=== PATIENT | male | born 1925 | race Caucasian/White ===

== ENCOUNTER 2016-05-12 16:23 | Inpatient (IN) | payer OTHER ==
[2016-05-12 16:34] VITALS: BMI 28.1
--- NOTE | 2016-05-12 17:33 | PDOC ---
History of Present Illness - History of Present Illness Initial Comments: The patient is an 89 year old male with a past medical hx of Alzheimers, HTN, hyperlipidemia, CAD, afib (xarelto), peptic ulcer disease/p partial gastrectomy ) who was sent to the ED by his PCP for a repeat head CT status post fall and shingles (prescribed Valtrex). He went to [facility] yesterday, had a negative head CT, and signed out AMA. The patient complains of bruising and pain in the posterior aspect of his head, and right sided neck pain, worse with right sided rotation. Shingles has disseminated throughout the body. The patient lives at home alone, accompanied by cousin. The patient denies dizziness, lightheadedness, muscle weakness, paresthesias, change in vision The patient denies chest pain, SOB The patient denies nausea, vomiting, diarrhea The patient denies dysuria, frequency Allergies: Penicillin Surgical Hx: Quadruple Bypass, Abdominal surgery (many years ago) Social Hx: Former Smoker (Quit smoking 28 years ago) PCP: Dr. Colmenares IFD: Dr. Oropeza <Staci Caro - Last Filed: 05/12/16 18:52> - General History Source: Care Provider Exam Limitations: No Limitations <Angy Sweeney - Last Filed: 05/12/16 19:15> - General Chief Complaint: Weakness Stated Complaint: PCP SENT/EVALUATION/Weak/Fall, On blood thinner Time Seen by Provider: 05/12/16 17:32 Past History <Staci Caro - Last Filed: 05/12/16 18:52> - Past Medical History Cardiac Disorders: Yes (A FIB) Dementia: Yes GI Disorders: Yes HTN: Yes - Surgical History Abdominal Surgery: Yes Cardiac Surgery: Yes (QUAD BYPASS.) - Psycho/Social/Smoking Cessation Hx Anxiety: No Suicidal Ideation: No Smoking Status: No Smoking History: Never smoked Have you smoked in the past 12 months: No Number of Cigarettes Smoked Daily: 0 If you are a former smoker, when did you quit?: Over 28 years ago Information on smoking cessation initiated: No Hx Alcohol Use: No Drug/Substance Use Hx: No Substance Use Type: None Hx Substance Use Treatment: No <Angy Sweeney - Last Filed: 05/12/16 19:15> - Past Medical History Allergies/Adverse Reactions: Allergies Allergy/AdvReac Type Severity Reaction Status Date / Time Penicillins Allergy Severe Swelling Verified 05/12/16 16:29 Home Medications: Ambulatory Orders Acetaminophen [Tylenol] 650 mg PO QID PRN 05/12/16 Alprazolam [Xanax] 0.5 mg PO HS 05/12/16 Amlodipine Besylate [Norvasc -] 10 mg PO DAILY 05/12/16 Atorvastatin Ca [Lipitor] 20 mg PO HS 05/12/16 Diclofenac Sodium 40 mg TD BID 05/12/16 Gabapentin [Neurontin -] 300 mg PO HS 05/12/16 Hydrocortisone 2.5% Topical Cr [Anusol 2.5% Hc Cream -] 1 applic RC BID Metoprolol Succinate [Toprol Xl -] 50 mg PO DAILY 05/12/16 Olmesartan Medoxomil [Benicar (Nf)] 40 mg PO DAILY 05/12/16 Rivaroxaban [Xarelto -] 10 mg PO DAILY 05/12/16 Rivaroxaban [Xarelto -] 15 mg PO DAILY 05/12/16 Rivastigmine [Exelon Patch 9.5 mg/24 Hours] 1 each TD DAILY 05/12/16 Rosuvastatin [Crestor -] 10 mg PO DAILY 05/12/16 Tamsulosin HCl [Flomax] 0.4 mg PO DAILY 05/12/16 Valacyclovir HCl [Valtrex] 1,000 mg PO TID 05/12/16 Valsartan [Diovan] 160 mg PO DAILY 05/12/16 Zolpidem Tartrate [Ambien] 10 mg PO HS 05/12/16 Review of Systems - Review of Systems Able to Perform ROS?: Yes Comments:: 05/12/16 18:37 GENERAL/CONSTITUTIONAL: No: fever, chills, weakness, loss of appetite. HEAD, EYES, EARS, NOSE AND THROAT: +Bruising and pain to the posterior aspect of head. No: change in vision, ear pain, discharge, sore throat, throat swelling. CARDIOVASCULAR: No: chest pain, lightheadedness, palpitations, syncope RESPIRATORY: No: cough, shortness of breath, wheezing, hemoptysis, stridor. GASTROINTESTINAL: No: nausea, vomiting, abdominal cramping, diarrhea, rectal bleeding, constipation. GENITOURINARY: No: dysuria, hematuria, frequency, urgency, flank pain. MUSCULOSKELETAL: +Right sided neck pain. No: back pain, joint pain, muscle swelling. SKIN: No: lesions, pallor, rash or easy bruising. NEUROLOGIC: No: headache, vertigo, paresthesias, weakness ENDOCRINE: No: unexplained weight gain or loss HEMATOLOGIC/LYMPHATIC: No: anemia, easy bleeding, swelling nodes <Staci Caro - Last Filed: 05/12/16 18:52> *Physical Exam - Vital Signs Last Vital Signs Temp Pulse Resp BP Pulse Ox 97.8 F 85 18 198/110 98 05/12/16 16:27 05/12/16 16:27 05/12/16 16:27 05/12/16 16:27 05/12/16 16:27 - Physical Exam Comments: 05/12/16 18:52 GENERAL: The patient is in no acute distress. HEAD: +Dry blood to the posterior aspect of head. Tender 5x5 lesion on posterior aspect of head. EYES: PERRLA, EOMI, sclera anicteric, conjunctiva clear. ENT: Ears normal, nares patent, oropharynx clear without exudates. Moist mucous membranes. NECK: +Tense right SCM. Minimal range of motion on flexion and extension. Without lymphadenopathy, JVD, or masses. LUNGS: Breath sounds equal, clear to auscultation bilaterally. No wheezes, and no crackles. HEART:Regular rate and rhythm, normal S1 and S2 without murmur, rub or gallop. ABDOMEN: Soft, nontender, normoactive bowel sounds. No guarding, no rebound. EXTREMITIES: +Numerous maculopapular lesions on the L4 L5 dermatomes. Normal range of motion, no edema. No clubbing or cyanosis. No erythema, or tenderness. NEUROLOGICAL: +Negative dysdiadochokinesia, finger to nose intact, negative pronator drift. Muscle strength 5/5 throughout. Reflexes 2+ throughout. Unsteady gait, unable to perform heel to welch. Cranial nerves II through XII intact. Normal speech. No focal neurological deficits. MUSCULOSKELETAL: Back nontender to palpation, no CVA tenderness SKIN: +Dry, crusted, erythematous lesions throughout. Warm, Dry, normal turgor. <Staci Caro - Last Filed: 05/12/16 18:52> - Vital Signs Last Vital Signs Temp Pulse Resp BP Pulse Ox 97.8 F 85 18 198/110 98 05/12/16 16:27 05/12/16 16:27 05/12/16 16:27 05/12/16 16:27 05/12/16 16:27 <Angy Sweeney - Last Filed: 05/12/16 19:15> Heart Score/ECG Review #1 ECG reviewed & interpreted by me at: 19:15 05/12/16 19:15 Junctional rhythm, Rate of 88 bpm, [place] nml No st elevation or depressions (+) PVCs <Angy Sweeney - Last Filed: 05/12/16 19:15> ED Treatment Course - LABORATORY CBC & Chemistry Diagram: 05/12/16 18:00 05/12/16 18:00 - ADDITIONAL ORDERS Additional order review: Laboratory Results 05/12/16 18:00 Anti-A Titer Cancelled Blood Type Cancelled Antibody Screen Cancelled Spec Expiration Date Cancelled 05/12/16 18:00 RBC 5.40 D MCV 82.7 MCHC 32.1 RDW 16.0 H D MPV 8.4 Neutrophils % 72.2 Lymphocytes % 18.2 Monocytes % 7.9 Eosinophils % 0.8 Basophils % 0.9 <Staci Caro - Last Filed: 05/12/16 18:52> - LABORATORY CBC & Chemistry Diagram: 05/12/16 18:00 05/12/16 18:00 <Angy Sweeney - Last Filed: 05/12/16 19:15> Medical Decision Making - Medical Decision Making 05/12/16 17:33 A portion of this note was documented by scribe services under my direction. I have reviewed the details of the note, within reason, and agree with the documentation with the following case summary and management plan written by me. Nursing documentation reviewed and incorporated into medical decision making 05/12/16 18:30 This is an 89-year-old male with a history of dementia, HTN, hyperlipidemia, CAD , paroxysmal afib (xarelto), peptic ulcer disease/p partial gastrectomy, who presents to the ER s/p fall Pt was seen at an OSH where Head CT was done Pt did not want to come in to the hospital at that time Pt has been noted to have failure to thrive Pt sent to the ER to be admitted, repeat Head CT (given head trauma and Xeralto) 05/12/16 18:34 Laboratory Tests 02/12/16 05/12/16 06:00 18:00 WBC 7.5 9.8 D Hgb 12.5 14.4 D Hct 38.1 44.7 D Plt Count 139 233 D 05/12/16 19:00 Will admit under [facility] Pt admitted by Dr Alvarado 05/12/16 19:02 <Angy Sweeney - Last Filed: 05/12/16 19:15> *DC/Admit/Observation/Transfer - Attestations Scribe Attestion: 05/12/16 18:38 Documentation prepared by Staci Caro, acting as medical transcriptionist for Angy Sweeney MD/DO. <Staci Caro - Last Filed: 05/12/16 18:52> - Discharge Dispostion Admit: Yes <Angy Sweeney - Last Filed: 05/12/16 19:15> Diagnosis at time of Disposition: Weakness - Discharge Dispostion Condition at time of disposition: Stable - Referrals Referrals: Denny Alvarado MD [Primary Care Provider] -
[2016-05-12 18:10] LABS: BASOPHIL 0.9 % (0-2.0); EOSINOPHIL 0.8 % (0-4.5); MCH 26.6 pg (25.7-33.7); MCHC 32.1 g/dl (32.0-35.9); MEAN CELL VOLUME 82.7 fl (80-96); MEAN PLT VOLUME 8.4 fl (7.5-11.1); NEUTROPHILS 72.2 % (42.8-82.8); PLATELET COUNT 233 K/MM3 (134-434); WHITE BLOOD COUNT 9.8 K/mm3 (4.0-10.0)
[2016-05-12 18:47] LABS: ALBUMIN 4.5 g/dl (3.4-5.0); ALK PHOS 83 U/L (45-117); ANION GAP 8 (8-16); BILIRUBIN,TOTAL 1.7 mg/dL (0.2-1.0); CALCIUM 9.3 mg/dL (8.5-10.1); CO2 26 mmol/L (21-32); CREATININE 1.1 mg/dL (0.7-1.3); GLUCOSE,RANDOM 165 mg/dL (74-106); SGOT/AST 39 U/L (15-37); SGPT/ALT 53 U/L (12-78); TOT PROT 7.9 g/dl (6.4-8.2)
[2016-05-12 18:50] LABS: INR 1.91 (0.82-1.09); PROTHROMBIN TIME (PATIENT) 21.3 SEC (9.98-11.88)
[2016-05-12 19:56] LABS: TROPONIN I < 0.02 ng/ml (0.00-0.05)
[2016-05-12] MEDS ORDERED: ATORVASTATIN CA 40 MG TABLET (FP) ONE (22:41)
[2016-05-12] MEDS ORDERED: TAMSULOSIN HCL 0.4 MG CAP.ER.24H (FP) ONE (22:41)
[2016-05-12] MEDS: ATORVASTATIN CA 20 MG TABLET (FP) PO SCH (22:55)
[2016-05-12] MEDS: TAMSULOSIN HCL 0.4 MG CAP.ER.24H (FP) PO SCH (22:55)
[2016-05-13 03:42] LABS: TROPONIN I 0.02 ng/ml (0.00-0.05)
[2016-05-13 08:21] LABS: BASOPHIL 0.5 % (0-2.0); EOSINOPHIL 1.2 % (0-4.5); MCH 27.1 pg (25.7-33.7); MCHC 32.7 g/dl (32.0-35.9); MEAN CELL VOLUME 82.9 fl (80-96); MEAN PLT VOLUME 8.7 fl (7.5-11.1); NEUTROPHILS 73.7 % (42.8-82.8); PLATELET COUNT 203 K/MM3 (134-434); RDW 15.8 % (11.9-15.9)
[2016-05-13 09:03] LABS: ALK PHOS 76 U/L (45-117); ANION GAP 5 (8-16); BILIRUBIN,TOTAL 1.7 mg/dL (0.2-1.0); CALCIUM 8.5 mg/dL (8.5-10.1); CO2 28 mmol/L (21-32); GLUCOSE,RANDOM 105 mg/dL (74-106); SGOT/AST 33 U/L (15-37); SGPT/ALT 46 U/L (12-78); THYROID STIMULATING HORMONE 1.87 uIU/ml (0.358-3.74); TROPONIN I 0.02 ng/ml (0.00-0.05)
[2016-05-13] MEDS: PANTOPRAZOLE 40 MG TABLET (FP) PO SCH (09:52)
[2016-05-13] MEDS: TAMSULOSIN HCL 0.4 MG CAP.ER.24H (FP) PO SCH ×2 (09:52→22:44)
[2016-05-13] MEDS ORDERED: RIVAROXABAN 15 MG TABLET PO SCH (10:00)
[2016-05-13] MEDS ORDERED: METOPROLOL SUCCINATE 50 MG TAB.SR.24H (FP) PO SCH ×2 (10:00→10:45)
[2016-05-13] MEDS ORDERED: PATIENT'S OWN MEDICATION (NON-FORMULARY) (Rivastigmine 1 EACH) TD SCH (10:00)
--- NOTE | 2016-05-13 10:27 | CONSULT ---
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 Cardio/Vascular: Yes: AFIB, CAD, HTN, Hyperlipdemia Rheumatology: Yes: Gout - Past Surgical History Past Surgical History: Yes: CABG, Carotid Endarterectomy - Alcohol/Substance Use Hx Alcohol Use: No - Smoking History Smoking history: Never smoked Have you smoked in the past 12 months: No Aproximately how many cigarettes per day: 0 If you are a former smoker, when did you quit?: Over 28 years ago - Social History Usual Living Arrangement: Alone ADL: Independent Home Medications - Allergies Allergies/Adverse Reactions: Allergies Allergy/AdvReac Type Severity Reaction Status Date / Time Penicillins Allergy Severe Swelling Verified 05/12/16 16:29 - Home Medications Home Medications: Ambulatory Orders Acetaminophen [Tylenol] 650 mg PO QID PRN 05/12/16 Alprazolam [Xanax] 0.5 mg PO HS 05/12/16 Amlodipine Besylate [Norvasc -] 10 mg PO DAILY 05/12/16 Atorvastatin Ca [Lipitor] 20 mg PO HS 05/12/16 Diclofenac Sodium 40 mg TD BID 05/12/16 Gabapentin [Neurontin -] 300 mg PO HS 05/12/16 Hydrocortisone 2.5% Topical Cr [Anusol 2.5% Hc Cream -] 1 applic RC BID Metoprolol Succinate [Toprol Xl -] 50 mg PO DAILY 05/12/16 Olmesartan Medoxomil [Benicar (Nf)] 40 mg PO DAILY 05/12/16 Rivaroxaban [Xarelto -] 10 mg PO DAILY 05/12/16 Rivaroxaban [Xarelto -] 15 mg PO DAILY 05/12/16 Rivastigmine [Exelon Patch 9.5 mg/24 Hours] 1 each TD DAILY 05/12/16 Rosuvastatin [Crestor -] 10 mg PO DAILY 05/12/16 Tamsulosin HCl [Flomax] 0.4 mg PO DAILY 05/12/16 Valacyclovir HCl [Valtrex] 1,000 mg PO TID 05/12/16 Valsartan [Diovan] 160 mg PO DAILY 05/12/16 Zolpidem Tartrate [Ambien] 10 mg PO HS 05/12/16 Family Disease History - Family Disease History Family Disease History: Heart Disease: Father Physical Exam Vital Signs: Vital Signs Temperature 98 F 05/13/16 05:32 Pulse Rate 98 H 05/13/16 05:32 Respiratory Rate 20 05/13/16 05:32 Blood Pressure 164/111 05/13/16 05:32 O2 Sat by Pulse Oximetry (%) 98 05/12/16 22:00 Constitutional: Yes: No Distress, Calm Eyes: Yes: EOM Intact, PERRL. No: Ptosis Neck: Yes: Supple Gastrointestinal: Yes: Soft Neurological: Yes: Alert (disoriented to season of the year and current president with no aphasia. Fomal MMSE was not done. no facial asymmetry and no focal motor weakness.) Labs: CBC, BMP 05/13/16 06:05 05/13/16 06:05 Assessment/Plan Closed head injury with recent (past 24 hours) negative CT and local hospital P PT and balance and gait evaluation Rehab consultation and or social service consultation for evaluation of fall risk and need for supervised living accommodations.
[2016-05-13] MEDS ORDERED: METOPROLOL SUCCINATE 50 MG TAB.SR.24H (FP) PO ONE (10:37)
--- NOTE | 2016-05-13 10:37 | HP ---
Admitting History and Physical - Primary Care Physician PCP: Denny Alvarado - Admission Chief Complaint: 1. FALL/HEAD LAC ON NOAC. 2. WEAKNESS. 3. SHINGLES. 4. 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 Cardiovascular: Yes: AFIB, CAD, HTN, Hyperlipdemia Rheumatology: Yes: Gout - Past Surgical History Past Surgical History: Yes: CABG, Carotid Endarterectomy - Advance Directives Advance Directives: Yes: DNR - Smoking History Smoking history: Never smoked Have you smoked in the past 12 months: No Aproximately how many cigarettes per day: 0 If you are a former smoker, when did you quit?: Over 28 years ago - Alcohol/Substance Use Hx Alcohol Use: No - Social History ADL: Independent Home Medications - Allergies Allergies/Adverse Reactions: Allergies Allergy/AdvReac Type Severity Reaction Status Date / Time Penicillins Allergy Severe Swelling Verified 05/12/16 16:29 - Home Medications Home Medications: Ambulatory Orders Acetaminophen [Tylenol] 650 mg PO QID PRN 05/12/16 Alprazolam [Xanax] 0.5 mg PO HS 05/12/16 Amlodipine Besylate [Norvasc -] 10 mg PO DAILY 05/12/16 Atorvastatin Ca [Lipitor] 20 mg PO HS 05/12/16 Diclofenac Sodium 40 mg TD BID 05/12/16 Gabapentin [Neurontin -] 300 mg PO HS 05/12/16 Hydrocortisone 2.5% Topical Cr [Anusol 2.5% Hc Cream -] 1 applic RC BID Metoprolol Succinate [Toprol Xl -] 50 mg PO DAILY 05/12/16 Olmesartan Medoxomil [Benicar (Nf)] 40 mg PO DAILY 05/12/16 Rivaroxaban [Xarelto -] 10 mg PO DAILY 05/12/16 Rivaroxaban [Xarelto -] 15 mg PO DAILY 05/12/16 Rivastigmine [Exelon Patch 9.5 mg/24 Hours] 1 each TD DAILY 05/12/16 Rosuvastatin [Crestor -] 10 mg PO DAILY 05/12/16 Tamsulosin HCl [Flomax] 0.4 mg PO DAILY 05/12/16 Valacyclovir HCl [Valtrex] 1,000 mg PO TID 05/12/16 Valsartan [Diovan] 160 mg PO DAILY 05/12/16 Zolpidem Tartrate [Ambien] 10 mg PO HS 05/12/16 Family Disease History - Family Disease History Family Disease History: Heart Disease: Father Review of Systems Findings/Remarks: UNRELIABLE HISTORIAN Physical Examination Vital Signs: Vital Signs Temperature 98 F 05/13/16 05:32 Pulse Rate 98 H 05/13/16 05:32 Respiratory Rate 20 05/13/16 05:32 Blood Pressure 164/111 05/13/16 05:32 O2 Sat by Pulse Oximetry (%) 98 05/12/16 22:00 Constitutional: Yes: Calm Cardiovascular: Yes: S1, S2 Respiratory: Yes: CTA Bilaterally Gastrointestinal: Yes: Normal Bowel Sounds, Soft Edema: No Wound/Incision: Yes: Other (OCCIPITAL AREA LAC C/D/I + HAS DERM ADHESIVE BY [facility]. SHINGLES ON MULTIPLE SITES. RLE SHINGLES) Labs: CBC, BMP 05/13/16 06:05 05/13/16 06:05 Imaging - Results Chest X-ray: Report Reviewed Cat Scan: Report Reviewed Problem List - Problems (1) Weakness Code(s): R53.1 - WEAKNESS (2) Fall Code(s): W19.XXXA - UNSPECIFIED FALL, INITIAL ENCOUNTER (3) Dementia Code(s): F03.90 - UNSPECIFIED DEMENTIA WITHOUT BEHAVIORAL DISTURBANCE (4) Shingles Code(s): B02.9 - ZOSTER WITHOUT COMPLICATIONS (5) HTN (hypertension) Code(s): I10 - ESSENTIAL (PRIMARY) HYPERTENSION (6) CAD (coronary artery disease) Code(s): I25.10 - ATHSCL HEART DISEASE OF [place] CORONARY ARTERY W/O ANG PCTRS (7) Peptic ulcer Code(s): K27.9 - PEPTIC ULC, SITE UNSP, UNSP AC OR CHR, W/O HEMOR OR PERF (8) Afib Code(s): I48.91 - UNSPECIFIED ATRIAL FIBRILLATION Assessment/Plan The patient is an 89 year old male with a past medical hx of Alzheimers, HTN, hyperlipidemia, CAD, afib (xarelto), peptic ulcer disease/p partial gastrectomy ) who was sent to the ED by his PCP for a repeat head CT status post fall and shingles (prescribed Valtrex). He went to [facility] yesterday, had a negative head CT, and signed out AMA. The patient complains of bruising and pain in the posterior aspect of his head, and right sided neck pain, worse with right sided rotation. Shingles has disseminated throughout the body. The patient lives at home alone, accompanied by cousin. The patient denies dizziness, lightheadedness, muscle weakness, paresthesias, change in vision The patient denies chest pain, SOB The patient denies nausea, vomiting, diarrhea The patient denies dysuria, frequency Allergies: Penicillin Surgical Hx: Quadruple Bypass, Abdominal surgery (many years ago) Social Hx: Former Smoker (Quit smoking 28 years ago) PCP: Dr. Colmenares IFD: Dr. Tolbert (1) Weakness Code(s): R53.1 - WEAKNESS CASE D/W FAMILY -> WANTS PT/SNF (PREFER [facility]) POOR GAIT LIVES ALONE BUT HAS FAMILY SUPPORT UNSAFE DISCHARGE (2) Fall Code(s): W19.XXXA - UNSPECIFIED FALL, INITIAL ENCOUNTER CTB NEG x 2 (3) Dementia Code(s): F03.90 - UNSPECIFIED DEMENTIA WITHOUT BEHAVIORAL DISTURBANCE I SPOKE TO DAUGHTER ( IN AGREEMENT) -> WANT DNR/DNI (4) Shingles Code(s): B02.9 - ZOSTER WITHOUT COMPLICATIONS MULTIPLE DERMATOMES UNRELIABLE HISTORIAN ID DR TOLBERT KNOWS PATIENT FROM DR MIJARES'S OFFICE -> CONSULTED ON GABAPENTIN ISOLATION (5) HTN (hypertension) Code(s): I10 - ESSENTIAL (PRIMARY) HYPERTENSION UNCONTROLLED CXr SHOW CARDIOMEGALY BNP INCed TROP NEG BB INCREASED (6) CAD (coronary artery disease) Code(s): I25.10 - ATHSCL HEART DISEASE OF [place] CORONARY ARTERY W/O ANG PCTRS (7) Peptic ulcer Code(s): K27.9 - PEPTIC ULC, SITE UNSP, UNSP AC OR CHR, W/O HEMOR OR PERF PPI (8) Afib Code(s): I48.91 - UNSPECIFIED ATRIAL FIBRILLATION ON XARELTO INITIALLY REFUSED TO TAKE MORE THAN 10mg -> NOW OK WITH 15mg CARDIO CONSULTED 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
[2016-05-13] MEDS ORDERED: ACETAMINOPHEN 325 MG TABLET (FP) PO PRN (10:42)
--- NOTE | 2016-05-13 11:26 | EKG ---
Test Reason : Blood Pressure : / mmHG Vent. Rate : 088 BPM Atrial Rate : 090 BPM P-R Int : 000 ms QRS Dur : 094 ms QT Int : 376 ms P-R-T Axes : 000 -16 120 degrees QTc Int : 454 ms ATRIAL FIBRILLATION PREMATURE VENTRICULAR COMPLEXES ABNORMAL ECG Confirmed by RAYMOND CRAFT MD ([id number]) on 05/13/2016 11:26:15 AM Referred By: Confirmed By:RAYMOND CRAFT MD
--- NOTE | 2016-05-13 12:23 | CONSULT ---
Consult Consult Specialty:: Cardiology Referred by:: Femi Colmenares/ Reason for Consultation:: HTN - History of Present Illness Chief Complaint: Reported History of Present Illness: 89 year old demented (alzheimer's) male with past tobacco, hx HTN, hyperlipidemia, CAD/CABG (no details available) -.> nuclear stress test in 09/18 was normal with EF 67%, afib (xarelto, though not afib dose), peptic ulcer disease/partial gastrectomy, sent to the ED by his PCP for a repeat head CT status post fall and ? shingles (prescribed Valtrex). He went to [facility] yesterday where he had a negative head CT, but signed out AMA. Patient denies CP, SOB, palpitations or dizziness. However, he is a very poor history and is only oriented to self BP was very high on admission, but better with resumption of his home meds. 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 ? when), Carotid Endarterectomy - Alcohol/Substance Use Hx Alcohol Use: No - Smoking History Smoking history: Former smoker Have you smoked in the past 12 months: No Aproximately how many cigarettes per day: 0 If you are a former smoker, when did you quit?: Over 28 years ago - Social History Usual Living Arrangement: Alone ADL: Independent Home Medications - Allergies Allergies/Adverse Reactions: Allergies Allergy/AdvReac Type Severity Reaction Status Date / Time Penicillins Allergy Severe Swelling Verified 05/12/16 16:29 - Home Medications Home Medications: Ambulatory Orders Acetaminophen [Tylenol] 650 mg PO QID PRN 05/12/16 Alprazolam [Xanax] 0.5 mg PO HS 05/12/16 Amlodipine Besylate [Norvasc -] 10 mg PO DAILY 05/12/16 Atorvastatin Ca [Lipitor] 20 mg PO HS 05/12/16 Diclofenac Sodium 40 mg TD BID 05/12/16 Gabapentin [Neurontin -] 300 mg PO HS 05/12/16 Hydrocortisone 2.5% Topical Cr [Anusol 2.5% Hc Cream -] 1 applic RC BID Metoprolol Succinate [Toprol Xl -] 50 mg PO DAILY 05/12/16 Olmesartan Medoxomil [Benicar (Nf)] 40 mg PO DAILY 05/12/16 Rivaroxaban [Xarelto -] 10 mg PO DAILY 05/12/16 Rivaroxaban [Xarelto -] 15 mg PO DAILY 05/12/16 Rivastigmine [Exelon Patch 9.5 mg/24 Hours] 1 each TD DAILY 05/12/16 Rosuvastatin [Crestor -] 10 mg PO DAILY 05/12/16 Tamsulosin HCl [Flomax] 0.4 mg PO DAILY 05/12/16 Valacyclovir HCl [Valtrex] 1,000 mg PO TID 05/12/16 Valsartan [Diovan] 160 mg PO DAILY 05/12/16 Zolpidem Tartrate [Ambien] 10 mg PO HS 05/12/16 Family Disease History - Family Disease History Family History: Unable to Obtain (given dementia) Family Disease History: Heart Disease: Father Review of Systems Unable to obtain ROS, reason: due to dementia Physical Exam Vital Signs: Vital Signs Temperature 98.2 F 05/13/16 10:00 Pulse Rate 99 H 05/13/16 10:00 Respiratory Rate 20 05/13/16 10:00 Blood Pressure 139/56 05/13/16 10:00 O2 Sat by Pulse Oximetry (%) 98 05/13/16 09:00 Constitutional: Yes: Thin Eyes: Yes: Conjunctiva Clear HENT: Yes: Other (lesion on back of head) Neck: Yes: Supple (but pain on rotation) Cardiovascular: Yes: Regular Rate and Rhythm, Murmur Respiratory: Yes: CTA Bilaterally Gastrointestinal: Yes: Normal Bowel Sounds, Soft. No: Tenderness Extremities: Yes: Other (warm) Edema: No Peripheral Pulses WNL: Yes Integumentary: Yes: Rash Neurological: Yes: Alert, Oriented (to self only) Labs: CBC, BMP 05/13/16 06:05 05/13/16 06:05 Imaging - Results Chest X-ray: Report Reviewed, Image Reviewed EKG: Report Reviewed, Image Reviewed (afib with PVCs vs aberrancy) Assessment/Plan 89 yo demented male with above history, here after a fall. No acute fidings on head CTs X 2. Pt is only oriente dto self and has no idea why he's here. There is no acute OK There is no clinical CHF in spite of elevated BNP to > 1000 BP was very high, but that's probably because he wasn't taking meds as he should have. BP better now, on home meds CAF -. on subtherapeutic xarelto dose. Pt with Cr Cl > 50 and should be on 20mg HS. However, I am very concerned about safety of continuing administering any anticoagulation in this pt, given his mental status, if he is going back to living alone and self-administering his meds. Pt with elevated INR to 1.9 -> likely from xarelto Rec: Continue current meds Consider placement for pt, given his dementia If he goes back home, even if someone administers his meds, I would recommend d/ c xarelto and start ASA 81, as I think he is unsafe. If he goes to [place] where he is supervised and his meds administered, then I think he can be continue the xarelto for now. Thanks! We'll follow!
[2016-05-13] MEDS: amLODIPine BESYLATE 10 MG TABLET (FP) PO SCH (13:49)
[2016-05-13] MEDS: RIVASTIGMINE 9.5 MG/24 HOURS TRANSDERMAL PATCH TD SCH (13:50)
[2016-05-13] MEDS: valACYclovir HCL 500 MG TABLET (FP) PO SCH ×2 (13:52→22:44)
--- NOTE | 2016-05-13 16:24 | CONSULT ---
Consult Consult Specialty:: infectious diseases Reason for Consultation:: shingles and spots on the back - History of Present Illness History of Present Illness: n The patient is an 89 year old male with a past medical hx of Alzheimers, HTN, hyperlipidemia, CAD, afib (xarelto), peptic ulcer disease/p partial gastrectomy ) who was sent to the ED by his PCP for a repeat head CT status post fall and shingles (prescribed Valtrex). He went to [facility] yesterday, had a negative head CT, and signed out AMA. The patient complains of bruising and pain in the posterior aspect of his head, and right sided neck pain, worse with right sided rotation. Shingles has disseminated throughout the body. The patient lives at home alone, accompanied by cousin. 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 Cardio/Vascular: Yes: AFIB, CAD, HTN, Hyperlipdemia Gastrointestinal: Yes: Other (rectal bleed in 02/20) Rheumatology: Yes: Gout - Past Surgical History Past Surgical History: Yes: CABG, Carotid Endarterectomy - Alcohol/Substance Use Hx Alcohol Use: No - Smoking History Smoking history: Never smoked Have you smoked in the past 12 months: No Aproximately how many cigarettes per day: 0 If you are a former smoker, when did you quit?: Over 28 years ago - Social History Usual Living Arrangement: Alone ADL: Independent Home Medications - Allergies Allergies/Adverse Reactions: Allergies Allergy/AdvReac Type Severity Reaction Status Date / Time Penicillins Allergy Severe Swelling Verified 05/12/16 16:29 - Home Medications Home Medications: Ambulatory Orders Acetaminophen [Tylenol] 650 mg PO QID PRN 05/12/16 Alprazolam [Xanax] 0.5 mg PO HS 05/12/16 Amlodipine Besylate [Norvasc -] 10 mg PO DAILY 05/12/16 Atorvastatin Ca [Lipitor] 20 mg PO HS 05/12/16 Diclofenac Sodium 40 mg TD BID 05/12/16 Gabapentin [Neurontin -] 300 mg PO HS 05/12/16 Hydrocortisone 2.5% Topical Cr [Anusol 2.5% Hc Cream -] 1 applic RC BID Metoprolol Succinate [Toprol Xl -] 50 mg PO DAILY 05/12/16 Olmesartan Medoxomil [Benicar (Nf)] 40 mg PO DAILY 05/12/16 Rivaroxaban [Xarelto -] 10 mg PO DAILY 05/12/16 Rivaroxaban [Xarelto -] 15 mg PO DAILY 05/12/16 Rivastigmine [Exelon Patch 9.5 mg/24 Hours] 1 each TD DAILY 05/12/16 Rosuvastatin [Crestor -] 10 mg PO DAILY 05/12/16 Tamsulosin HCl [Flomax] 0.4 mg PO DAILY 05/12/16 Valacyclovir HCl [Valtrex] 1,000 mg PO TID 05/12/16 Valsartan [Diovan] 160 mg PO DAILY 05/12/16 Zolpidem Tartrate [Ambien] 10 mg PO HS 05/12/16 Family Disease History - Family Disease History Family Disease History: Heart Disease: Father Review of Systems Unable to obtain ROS, reason: unable to obtian Physical Exam Vital Signs: Vital Signs Temperature 97.7 F 05/13/16 14:05 Pulse Rate 95 H 05/13/16 14:05 Respiratory Rate 20 05/13/16 14:05 Blood Pressure 126/76 05/13/16 14:05 O2 Sat by Pulse Oximetry (%) 98 05/13/16 09:00 Constitutional: Yes: No Distress, Calm Eyes: Yes: Conjunctiva Clear HENT: Yes: Atraumatic Neck: Yes: Supple Cardiovascular: Yes: Regular Rate and Rhythm Respiratory: Yes: Regular, CTA Bilaterally Gastrointestinal: Yes: Normal Bowel Sounds, Soft Musculoskeletal: Yes: WNL Extremities: Yes: WNL Integumentary: Yes: Rash, Other (patient has macular lesions all over the abck and legs shicles on the legs and buttocks) Neurological: Yes: Alert, Confusion Psychiatric: Yes: Alert, Other Labs: CBC, BMP 05/13/16 06:05 05/13/16 06:05 Imaging - Results Chest X-ray: Report Reviewed, Image Reviewed Assessment/Plan - Problems (1) Weakness Code(s): R53.1 - WEAKNESS (2) Fall Code(s): W19.XXXA - UNSPECIFIED FALL, INITIAL ENCOUNTER (3) Dementia Code(s): F03.90 - UNSPECIFIED DEMENTIA WITHOUT BEHAVIORAL DISTURBANCE (4) Shingles Code(s): B02.9 - ZOSTER WITHOUT COMPLICATIONS (5) HTN (hypertension) Code(s): I10 - ESSENTIAL (PRIMARY) HYPERTENSION (6) CAD (coronary artery disease) Code(s): I25.10 - ATHSCL HEART DISEASE OF [place] CORONARY ARTERY W/O ANG PCTRS (7) Peptic ulcer Code(s): K27.9 - PEPTIC ULC, SITE UNSP, UNSP AC OR CHR, W/O HEMOR OR PERF (8) Afib Code(s): I48.91 - UNSPECIFIED ATRIAL FIBRILLATION probable bug bites plan will send urine and blood cx will not start him on anything at the moment conmtinue as per medical team
[2016-05-13] MEDS ORDERED: ATORVASTATIN CA 20 MG TABLET (FP) PO SCH (22:00)
[2016-05-13] MEDS: GABAPENTIN 300 MG CAPSULE (FP) PO SCH (22:44)
[2016-05-13] MEDS: ATORVASTATIN CA 20 MG TABLET (FP) PO SCH (22:44)
[2016-05-13] MEDS ORDERED: PT OWN MED DRAWER 7, Y5N ONE (23:46)
[2016-05-14] MEDS ORDERED: PT OWN MED DRAWER 7, Y5N ONE ×2 (05:22→09:23)
[2016-05-14] MEDS: valACYclovir HCL 500 MG TABLET (FP) PO SCH ×3 (06:12→22:42)
--- NOTE | 2016-05-14 09:12 | PN ---
Progress Note, Physician - Current Medication List Current Medications: Active Medications Acetaminophen (Tylenol -) 650 mg PO QID PRN PRN Reason: PAIN OR FEVER Amlodipine Besylate (Norvasc -) 10 mg PO DAILY [facility] Last Admin: 05/13/16 13:49 Dose: 10 mg Atorvastatin Calcium (Lipitor -) 20 mg PO HS [facility] Last Admin: 05/13/16 22:44 Dose: 20 mg Gabapentin (Neurontin -) 300 mg PO HS [facility] Last Admin: 05/13/16 22:44 Dose: 300 mg Metoprolol Succinate (Toprol Xl -) 100 mg PO DAILY [facility] Pantoprazole Sodium (Protonix -) 40 mg PO DAILY [facility] Last Admin: 05/13/16 09:52 Dose: 40 mg Rivaroxaban (Xarelto -) 20 mg PO DAILY [facility] Rivastigmine (Exelon Patch 9.5 Mg/24 Hours -) 1 each TD DAILY [facility] Last Admin: 05/13/16 13:50 Dose: 1 each Tamsulosin HCl (Flomax -) 0.4 mg PO BID [facility] Last Admin: 05/13/16 22:44 Dose: 0.4 mg Valacyclovir HCl (Valtrex -) 1,000 mg PO TID [facility] Last Admin: 05/14/16 06:12 Dose: 1,000 mg Valsartan (Diovan -) 320 mg PO DAILY [facility] - Objective Vital Signs: Vital Signs Temperature 98.6 F 05/14/16 02:00 Pulse Rate 93 H 05/14/16 02:00 Respiratory Rate 18 05/14/16 02:00 Blood Pressure 136/69 05/14/16 02:00 O2 Sat by Pulse Oximetry (%) 98 05/13/16 21:00 Cardiovascular: Yes: S1, S2 Respiratory: Yes: CTA Bilaterally Gastrointestinal: Yes: Normal Bowel Sounds, Soft Edema: No Labs: CBC, BMP 05/13/16 06:05 05/13/16 06:05 INR, PTT INR 1.91 (0.82-1.09) H 05/12/16 18:00 Problem List - Problems (1) Weakness Code(s): R53.1 - WEAKNESS (2) Fall Code(s): W19.XXXA - UNSPECIFIED FALL, INITIAL ENCOUNTER (3) Dementia Code(s): F03.90 - UNSPECIFIED DEMENTIA WITHOUT BEHAVIORAL DISTURBANCE (4) Shingles Code(s): B02.9 - ZOSTER WITHOUT COMPLICATIONS (5) HTN (hypertension) Code(s): I10 - ESSENTIAL (PRIMARY) HYPERTENSION (6) CAD (coronary artery disease) Code(s): I25.10 - ATHSCL HEART DISEASE OF [place] CORONARY ARTERY W/O ANG PCTRS (7) Peptic ulcer Code(s): K27.9 - PEPTIC ULC, SITE UNSP, UNSP AC OR CHR, W/O HEMOR OR PERF (8) Afib Code(s): I48.91 - UNSPECIFIED ATRIAL FIBRILLATION Assessment/Plan (1) Weakness Code(s): R53.1 - WEAKNESS CASE D/W FAMILY -> WANTS PT/SNF ([facility]) POOR GAIT LIVES ALONE BUT HAS FAMILY SUPPORT UNSAFE DISCHARGE (2) Fall Code(s): W19.XXXA - UNSPECIFIED FALL, INITIAL ENCOUNTER CTB NEG x 2 (3) Dementia Code(s): F03.90 - UNSPECIFIED DEMENTIA WITHOUT BEHAVIORAL DISTURBANCE I SPOKE TO DAUGHTER ( IN AGREEMENT) -> WANT DNR/DNI NEURO CONSULT NOTED (4) Shingles Code(s): B02.9 - ZOSTER WITHOUT COMPLICATIONS MULTIPLE DERMATOMES UNRELIABLE HISTORIAN ID DR TOLBERT KNOWS PATIENT FROM DR MIJARES'S OFFICE -> CONSULTED ON GABAPENTIN/VALTREX ISOLATION (5) HTN (hypertension) Code(s): I10 - ESSENTIAL (PRIMARY) HYPERTENSION IMPROVED CXr SHOW CARDIOMEGALY CARDIO CONSULT NOTED (6) CAD (coronary artery disease) Code(s): I25.10 - ATHSCL HEART DISEASE OF [place] CORONARY ARTERY W/O ANG PCTRS (7) Peptic ulcer Code(s): K27.9 - PEPTIC ULC, SITE UNSP, UNSP AC OR CHR, W/O HEMOR OR PERF PPI (8) Afib Code(s): I48.91 - UNSPECIFIED ATRIAL FIBRILLATION FALL RISK/UNRELIABLE ON XARELTO 20 -> WILL STOP & REPLACE WITH ASA IF UNSUPERVISED/REPEAT FALL CARDIO CONSULT NOTED DISCHARGE PLANNING -> TO [facility] & SW ON CASE FM
[2016-05-14] MEDS ORDERED: PATIENT'S OWN MEDICATION (NON-FORMULARY) (Rivastigmine 1 EACH) TD SCH (10:00)
[2016-05-14] MEDS ORDERED: TAMSULOSIN HCL 0.4 MG CAP.ER.24H (FP) PO SCH (10:00)
[2016-05-14] MEDS: TAMSULOSIN HCL 0.4 MG CAP.ER.24H (FP) PO SCH ×2 (10:13→22:41)
[2016-05-14] MEDS: PANTOPRAZOLE 40 MG TABLET (FP) PO SCH (10:13)
[2016-05-14] MEDS: RIVAROXABAN 20 MG TABLET PO SCH (10:13)
[2016-05-14] MEDS: METOPROLOL SUCCINATE 100 MG TAB.SR.24H (FP) PO SCH (10:13)
[2016-05-14] MEDS: amLODIPine BESYLATE 10 MG TABLET (FP) PO SCH (10:13)
[2016-05-14] MEDS: VALSARTAN 160 MG TABLET (UD) PO SCH (10:13)
--- NOTE | 2016-05-14 12:08 | PN ---
Progress Note, Physician History of Present Illness: No chest pain or dyspnea. - Current Medication List Current Medications: Active Medications Acetaminophen (Tylenol -) 650 mg PO QID PRN PRN Reason: PAIN OR FEVER Amlodipine Besylate (Norvasc -) 10 mg PO DAILY [facility] Last Admin: 05/14/16 10:13 Dose: 10 mg Atorvastatin Calcium (Lipitor -) 20 mg PO HS [facility] Last Admin: 05/13/16 22:44 Dose: 20 mg Gabapentin (Neurontin -) 300 mg PO HS [facility] Last Admin: 05/13/16 22:44 Dose: 300 mg Metoprolol Succinate (Toprol Xl -) 100 mg PO DAILY [facility] Last Admin: 05/14/16 10:13 Dose: 100 mg Pantoprazole Sodium (Protonix -) 40 mg PO DAILY [facility] Last Admin: 05/14/16 10:13 Dose: 40 mg Rivaroxaban (Xarelto -) 20 mg PO DAILY [facility] Last Admin: 05/14/16 10:13 Dose: 20 mg Rivastigmine (Exelon Patch 9.5 Mg/24 Hours -) 1 each TD DAILY [facility] Last Admin: 05/13/16 13:50 Dose: 1 each Tamsulosin HCl (Flomax -) 0.4 mg PO BID [facility] Last Admin: 05/14/16 10:13 Dose: 0.4 mg Valacyclovir HCl (Valtrex -) 1,000 mg PO TID [facility] Last Admin: 05/14/16 06:12 Dose: 1,000 mg Valsartan (Diovan -) 320 mg PO DAILY [facility] Last Admin: 05/14/16 10:13 Dose: 320 mg - Objective Vital Signs: Vital Signs Temperature 97.6 F 05/14/16 10:11 Pulse Rate 88 05/14/16 10:11 Respiratory Rate 18 05/14/16 10:11 Blood Pressure 120/56 05/14/16 10:11 O2 Sat by Pulse Oximetry (%) 98 05/13/16 21:00 Constitutional: Yes: Well Nourished, No Distress Eyes: Yes: Conjunctiva Clear, EOM Intact HENT: Yes: Atraumatic, Normocephalic Cardiovascular: Yes: Pulse Irregular. No: JVD, Murmur Respiratory: Yes: CTA Bilaterally Gastrointestinal: Yes: Normal Bowel Sounds, Soft. No: Tenderness Edema: No Labs: CBC, BMP 05/13/16 06:05 05/13/16 06:05 INR, PTT INR 1.91 (0.82-1.09) H 05/12/16 18:00 Assessment/Plan 89 yo with Alzheimer's dementia, former smoker, HTN, hyperlipidemia, reported CAD/CABG (no details available) -> nuclear stress test in 09/2013 was normal with EF 67%, chronic afib, peptic ulcer disease/partial gastrectomy. Admitted for head CT after fall, shingles, and patient was felt to be unsafe to be home by himself. Patient denies CP, SOB, palpitations, or dizziness. Patient is poor historian and is only oriented to self. BP was very high on admission, but normalized with resumption of his home meds. Head CT negative x 2. No clinical evidence of CHF despite elevated BNP 1753. Patient with chronic afib and his Xarelto dose should be 20 mg po daily. However , there is concern about patient's safety with anticoagulation given his mental status, living alone, and self-administering his meds. RECS: Continue current meds. If patient is discharged home (even if someone administers his meds), discontinuation of Xarelto would be recommended and would start aspirin 81 mg po daily alone. However, if he goes to [place] where he is supervised and his meds are administered, the would continue his Xarelto. Will discontinue telemetry. Will see prn. Call with questions.
--- NOTE | 2016-05-14 15:26 | PN ---
Progress Note, Physician History of Present Illness: patient doing well family in room d/w the family - Current Medication List Current Medications: Active Medications Acetaminophen (Tylenol -) 650 mg PO QID PRN PRN Reason: PAIN OR FEVER Amlodipine Besylate (Norvasc -) 10 mg PO DAILY [facility] Last Admin: 05/14/16 10:13 Dose: 10 mg Atorvastatin Calcium (Lipitor -) 20 mg PO HS [facility] Last Admin: 05/13/16 22:44 Dose: 20 mg Gabapentin (Neurontin -) 300 mg PO HS [facility] Last Admin: 05/13/16 22:44 Dose: 300 mg Metoprolol Succinate (Toprol Xl -) 100 mg PO DAILY [facility] Last Admin: 05/14/16 10:13 Dose: 100 mg Pantoprazole Sodium (Protonix -) 40 mg PO DAILY [facility] Last Admin: 05/14/16 10:13 Dose: 40 mg Rivaroxaban (Xarelto -) 20 mg PO DAILY [facility] Last Admin: 05/14/16 10:13 Dose: 20 mg Rivastigmine (Exelon Patch 9.5 Mg/24 Hours -) 1 each TD DAILY [facility] Last Admin: 05/13/16 13:50 Dose: 1 each Tamsulosin HCl (Flomax -) 0.4 mg PO BID [facility] Last Admin: 05/14/16 10:13 Dose: 0.4 mg Valacyclovir HCl (Valtrex -) 1,000 mg PO TID [facility] Last Admin: 05/14/16 06:12 Dose: 1,000 mg Valsartan (Diovan -) 320 mg PO DAILY [facility] Last Admin: 05/14/16 10:13 Dose: 320 mg - Objective Vital Signs: Vital Signs Temperature 97.7 F 05/14/16 14:45 Pulse Rate 78 05/14/16 14:45 Respiratory Rate 18 05/14/16 14:45 Blood Pressure 125/62 05/14/16 14:45 O2 Sat by Pulse Oximetry (%) 98 05/13/16 21:00 Constitutional: Yes: No Distress, Calm Cardiovascular: Yes: Regular Rate and Rhythm Respiratory: Yes: Regular, CTA Bilaterally Gastrointestinal: Yes: Normal Bowel Sounds, Soft Musculoskeletal: Yes: WNL Extremities: Yes: WNL Integumentary: Yes: Rash Neurological: Yes: Alert Labs: CBC, BMP 05/13/16 06:05 05/13/16 06:05 INR, PTT INR 1.91 (0.82-1.09) H 05/12/16 18:00 Assessment/Plan - Problems (1) Weakness Code(s): R53.1 - WEAKNESS (2) Fall Code(s): W19.XXXA - UNSPECIFIED FALL, INITIAL ENCOUNTER (3) Dementia Code(s): F03.90 - UNSPECIFIED DEMENTIA WITHOUT BEHAVIORAL DISTURBANCE (4) Shingles Code(s): B02.9 - ZOSTER WITHOUT COMPLICATIONS (5) HTN (hypertension) Code(s): I10 - ESSENTIAL (PRIMARY) HYPERTENSION (6) CAD (coronary artery disease) Code(s): I25.10 - ATHSCL HEART DISEASE OF [place] CORONARY ARTERY W/O ANG PCTRS (7) Peptic ulcer Code(s): K27.9 - PEPTIC ULC, SITE UNSP, UNSP AC OR CHR, W/O HEMOR OR PERF (8) Afib Code(s): I48.91 - UNSPECIFIED ATRIAL FIBRILLATION probable bug bites plan await for all cx reports rest as per primary
--- NOTE | 2016-05-14 17:05 | PN ---
Progress Note, Physician History of Present Illness: 89 year old with Alzheimer, HTN, hyperlipidemia, and recent outbreak of shingles and possible head injury with neg CT resting quietly in bed with no neurological complaints - Current Medication List Current Medications: Active Medications Acetaminophen (Tylenol -) 650 mg PO QID PRN PRN Reason: PAIN OR FEVER Amlodipine Besylate (Norvasc -) 10 mg PO DAILY [facility] Last Admin: 05/14/16 10:13 Dose: 10 mg Atorvastatin Calcium (Lipitor -) 20 mg PO HS [facility] Last Admin: 05/13/16 22:44 Dose: 20 mg Gabapentin (Neurontin -) 300 mg PO HS [facility] Last Admin: 05/13/16 22:44 Dose: 300 mg Metoprolol Succinate (Toprol Xl -) 100 mg PO DAILY [facility] Last Admin: 05/14/16 10:13 Dose: 100 mg Pantoprazole Sodium (Protonix -) 40 mg PO DAILY [facility] Last Admin: 05/14/16 10:13 Dose: 40 mg Rivaroxaban (Xarelto -) 20 mg PO DAILY [facility] Last Admin: 05/14/16 10:13 Dose: 20 mg Rivastigmine (Exelon Patch 9.5 Mg/24 Hours -) 1 each TD DAILY [facility] Last Admin: 05/13/16 13:50 Dose: 1 each Tamsulosin HCl (Flomax -) 0.4 mg PO BID [facility] Last Admin: 05/14/16 10:13 Dose: 0.4 mg Valacyclovir HCl (Valtrex -) 1,000 mg PO TID [facility] Last Admin: 05/14/16 14:40 Dose: 1,000 mg Valsartan (Diovan -) 320 mg PO DAILY [facility] Last Admin: 05/14/16 10:13 Dose: 320 mg - Objective Vital Signs: Vital Signs Temperature 97.7 F 05/14/16 14:45 Pulse Rate 78 05/14/16 14:45 Respiratory Rate 18 05/14/16 14:45 Blood Pressure 125/62 05/14/16 14:45 O2 Sat by Pulse Oximetry (%) 98 05/13/16 21:00 Neurological: Yes: Alert, Cran Nerves II-XII Intact. No: Oriented, Aphasia, Ataxia, Facial Droop, Weakness Labs: CBC, BMP 05/13/16 06:05 05/13/16 06:05 INR, PTT INR 1.91 (0.82-1.09) H 05/12/16 18:00 Assessment/Plan Closed head injury with recent (past 24 hours) negative CT and local hospital P PT and balance and gait evaluation Rehab consultation and or social service consultation for evaluation of fall risk and need for supervised living accommodations. Will follow intermittently please call if needed.
[2016-05-14] MEDS: RIVASTIGMINE 9.5 MG/24 HOURS TRANSDERMAL PATCH TD SCH (17:48)
[2016-05-14] MEDS: ATORVASTATIN CA 20 MG TABLET (FP) PO SCH (22:41)
[2016-05-14] MEDS: GABAPENTIN 300 MG CAPSULE (FP) PO SCH (22:41)
[2016-05-15] MEDS: valACYclovir HCL 500 MG TABLET (FP) PO SCH ×3 (06:20→21:56)
[2016-05-15 07:11] LABS: BASOPHIL 0.4 % (0-2.0); MCHC 33.8 g/dl (32.0-35.9); MEAN CELL VOLUME 82.9 fl (80-96); MEAN PLT VOLUME 8.8 fl (7.5-11.1); NEUTROPHILS 69.3 % (42.8-82.8); PLATELET COUNT 213 K/MM3 (134-434); RDW 15.9 % (11.9-15.9); WHITE BLOOD COUNT 9.5 K/mm3 (4.0-10.0)
[2016-05-15 07:38] LABS: ALBUMIN 3.2 g/dl (3.4-5.0); CALCIUM 8.3 mg/dL (8.5-10.1); CREATININE 1.3 mg/dL (0.7-1.3)
[2016-05-15 07:40] LABS: BILIRUBIN,TOTAL 1.3 mg/dL (0.2-1.0); TOT PROT 5.9 g/dl (6.4-8.2)
--- NOTE | 2016-05-15 11:41 | DS ---
Physical Examination Vital Signs: Vital Signs Temperature 97.6 F 05/15/16 09:00 Pulse Rate 98 H 05/15/16 09:00 Respiratory Rate 22 05/15/16 09:00 Blood Pressure 113/58 05/15/16 09:00 O2 Sat by Pulse Oximetry (%) 98 05/15/16 09:00 Findings/Remarks: HAD D/W DAUGHTER (HCP) & FAMILY MEMBER AT BEDSIDE CONCERNED ABOUT POSSIBLE BED BUGS -> NOTE GIVEN FOR CONCESSIONIST TO FUMIGATE APT Cardiovascular: Yes: Regular Rate and Rhythm, S1, S2 Respiratory: Yes: CTA Bilaterally Gastrointestinal: Yes: Normal Bowel Sounds, Soft Edema: No Labs: CBC, BMP 05/15/16 05:30 05/15/16 05:30 Discharge Summary Reason For Visit: WEAKNESS Current Active Problems Afib (Acute) CAD (coronary artery disease) (Acute) Dementia (Acute) Fall (Acute) HTN (hypertension) (Acute) Peptic ulcer (Acute) Shingles (Acute) Weakness (Acute) Hospital Course: (1) Weakness Code(s): R53.1 - WEAKNESS CASE D/W FAMILY -> WANTS PT/SNF ([facility]FER [facility]) POOR GAIT LIVES ALONE BUT HAS FAMILY SUPPORT UNSAFE DISCHARGE (2) Fall Code(s): W19.XXXA - UNSPECIFIED FALL, INITIAL ENCOUNTER CTB NEG x 2 NEURO CONSULT APPRECIATED (3) Dementia Code(s): F03.90 - UNSPECIFIED DEMENTIA WITHOUT BEHAVIORAL DISTURBANCE I SPOKE TO DAUGHTER ( IN AGREEMENT) -> WANT DNR/DNI NEURO CONSULT NOTED (4) Shingles Code(s): B02.9 - ZOSTER WITHOUT COMPLICATIONS MULTIPLE DERMATOMES UNRELIABLE HISTORIAN ID DR TOLBERT KNOWS PATIENT FROM DR MIJARES'S OFFICE -> CONSULTED ON GABAPENTIN/VALTREX ISOLATION LESIONS RESOLVING BED BUGS? -> ELIMITE (5) HTN (hypertension) Code(s): I10 - ESSENTIAL (PRIMARY) HYPERTENSION IMPROVED CXr SHOW CARDIOMEGALY CARDIO CONSULT NOTED (6) CAD (coronary artery disease) Code(s): I25.10 - ATHSCL HEART DISEASE OF [place] CORONARY ARTERY W/O ANG PCTRS (7) Peptic ulcer Code(s): K27.9 - PEPTIC ULC, SITE UNSP, UNSP AC OR CHR, W/O HEMOR OR PERF PPI (8) Afib Code(s): I48.91 - UNSPECIFIED ATRIAL FIBRILLATION FALL RISK/UNRELIABLE ON XARELTO 20 LONG SUPERVISED/HOME WITH VNS/SNF -> WILL STOP & REPLACE WITH ASA IF UNSUPERVISED/REPEAT FALL CARDIO CONSULT NOTED DISCHARGE TO SNF [facility] & SW ON CASE PASTOR BALTAZAR Condition: Stable - Instructions Referrals: Denny Alvarado MD [Primary Care Provider] - - Home Medications Comprehensive Discharge Medication List: Ambulatory Orders Acetaminophen [Tylenol] 650 mg PO QID PRN 05/12/16 Alprazolam [Xanax] 0.5 mg PO HS 05/12/16 Amlodipine Besylate [Norvasc -] 10 mg PO DAILY 05/12/16 Atorvastatin Ca [Lipitor] 20 mg PO HS 05/12/16 Diclofenac Sodium 40 mg TD BID 05/12/16 Gabapentin [Neurontin -] 300 mg PO HS 05/12/16 Hydrocortisone 2.5% Topical Cr [Anusol 2.5% Hc Cream -] 1 applic RC BID Metoprolol Succinate [Toprol Xl -] 50 mg PO DAILY 05/12/16 Olmesartan Medoxomil [Benicar (Nf)] 40 mg PO DAILY 05/12/16 Rivaroxaban [Xarelto -] 10 mg PO DAILY 05/12/16 Rivaroxaban [Xarelto -] 15 mg PO DAILY 05/12/16 Rivastigmine [Exelon Patch 9.5 mg/24 Hours] 1 each TD DAILY 05/12/16 Rosuvastatin [Crestor -] 10 mg PO DAILY 05/12/16 Tamsulosin HCl [Flomax] 0.4 mg PO DAILY 05/12/16 Valacyclovir HCl [Valtrex] 1,000 mg PO TID 05/12/16 Valsartan [Diovan] 160 mg PO DAILY 05/12/16 Zolpidem Tartrate [Ambien] 10 mg PO HS 05/12/16
[2016-05-15] MEDS ORDERED: PT OWN MED DRAWER 7, Y5N ONE ×2 (11:52→14:32)
[2016-05-15] MEDS: METOPROLOL SUCCINATE 100 MG TAB.SR.24H (FP) PO SCH (11:56)
[2016-05-15] MEDS: TAMSULOSIN HCL 0.4 MG CAP.ER.24H (FP) PO SCH ×2 (11:56→21:56)
[2016-05-15] MEDS: RIVAROXABAN 20 MG TABLET PO SCH (11:57)
[2016-05-15] MEDS: amLODIPine BESYLATE 10 MG TABLET (FP) PO SCH (11:57)
[2016-05-15] MEDS: RIVASTIGMINE 9.5 MG/24 HOURS TRANSDERMAL PATCH TD SCH (11:57)
[2016-05-15] MEDS: PANTOPRAZOLE 40 MG TABLET (FP) PO SCH (11:57)
[2016-05-15] MEDS: VALSARTAN 160 MG TABLET (UD) PO SCH (11:57)
--- NOTE | 2016-05-15 15:41 | CONSULT ---
Consult Consult Specialty:: gastroenterology Referred by:: elevated total bilirubin - History of Present Illness History of Present Illness: The patient is an 89 year old male with a past medical hx of Alzheimers, HTN, hyperlipidemia, CAD, afib (xarelto), peptic ulcer disease/p partial gastrectomy ) who was sent to the ED by his PCP for a repeat head CT status post fall and shingles (prescribed Valtrex). He went to [facility] yesterday, had a negative head CT, and signed out AMA. The patient complains of bruising and pain in the posterior aspect of his head, and right sided neck pain, worse with right sided rotation. Shingles has disseminated throughout the body. The patient lives at home alone, accompanied by cousin. The patient denies dizziness, lightheadedness, muscle weakness, paresthesias, change in vision The patient denies chest pain, SOB The patient denies nausea, vomiting, diarrhea The patient denies dysuria, frequency Allergies: Penicillin Surgical Hx: Quadruple Bypass, Abdominal surgery (many years ago) Social Hx: Former Smoker (Quit smoking 28 year The patient was admitted with shingles,on routine labs was noted to have mild elevation of his total bilirubin. This treneded lower to near normal. 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 Cardio/Vascular: Yes: AFIB, CAD, HTN, Hyperlipdemia Gastrointestinal: Yes: Other (rectal bleed in 02/20) Rheumatology: Yes: Gout - Past Surgical History Past Surgical History: Yes: CABG, Carotid Endarterectomy - Alcohol/Substance Use Hx Alcohol Use: No - Smoking History Smoking history: Never smoked Have you smoked in the past 12 months: No Aproximately how many cigarettes per day: 0 If you are a former smoker, when did you quit?: Over 28 years ago - Social History Usual Living Arrangement: Alone ADL: Independent Home Medications - Allergies Allergies/Adverse Reactions: Allergies Allergy/AdvReac Type Severity Reaction Status Date / Time Penicillins Allergy Severe Swelling Verified 05/12/16 16:29 - Home Medications Home Medications: Ambulatory Orders Acetaminophen [Tylenol] 650 mg PO QID PRN 05/12/16 Amlodipine Besylate [Norvasc -] 10 mg PO DAILY 05/12/16 Atorvastatin Ca [Lipitor] 20 mg PO HS 05/12/16 Gabapentin [Neurontin -] 300 mg PO HS 05/12/16 Rivastigmine [Exelon Patch 9.5 mg/24 Hours -] 1 each TD DAILY 05/12/16 Atorvastatin Ca [Lipitor] 20 mg PO HS tablet 05/15/16 Metoprolol Succinate [Toprol XL -] 100 mg PO DAILY tab.sr.24h 05/15/16 Pantoprazole Sodium [Protonix -] 40 mg PO DAILY tablet.ec 05/15/16 Rivaroxaban [Xarelto -] 20 mg PO DAILY tablet 05/15/16 Rivastigmine [Exelon Patch 9.5 mg/24 Hours -] 1 each TD DAILY patch.td24 Tamsulosin HCl [Flomax -] 0.4 mg PO BID cap.er.24h 05/15/16 Valacyclovir HCl [Valtrex] 1,000 mg PO TID #12 05/15/16 Valsartan [Diovan] 320 mg PO DAILY tablet 05/15/16 Family Disease History - Family Disease History Family Disease History: Heart Disease: Father Physical Exam-GI Vital Signs: Vital Signs Temperature 98 F 05/15/16 14:00 Pulse Rate 75 05/15/16 14:00 Respiratory Rate 20 05/15/16 14:00 Blood Pressure 120/64 05/15/16 14:00 O2 Sat by Pulse Oximetry (%) 98 05/15/16 09:00 Constitutional: Yes: Well Nourished Eyes: Yes: Conjunctiva Clear HENT: Yes: Atraumatic Neck: Yes: Supple Cardiovascular: Yes: Regular Rate and Rhythm Respiratory: Yes: CTA Bilaterally ...Palpate: Yes: Soft. No: Firm/Rigid, Guarding, Hepatomegaly, Mass, Pulsatile Mass Labs: CBC, BMP 05/15/16 05:30 05/15/16 05:30 INR, PTT INR 1.91 (0.82-1.09) H 05/12/16 18:00 Problem List - Problems (1) Total bilirubin, elevated Assessment/Plan: mild r/o Gilbert's Syndrome R> obtain direct and indirect total bilirubin Code(s): R17 - UNSPECIFIED JAUNDICE
[2016-05-15] MEDS ORDERED: PERMETHRIN 5% TOPICAL CREAM 60 GM TUBE TP ONE (15:44)
[2016-05-15] MEDS ORDERED: MAGNESIUM CITRATE 300 ML BOTTLE PO ONE (16:10)
[2016-05-15] MEDS: GABAPENTIN 300 MG CAPSULE (FP) PO SCH (21:56)
[2016-05-15] MEDS: ATORVASTATIN CA 20 MG TABLET (FP) PO SCH (21:56)
[2016-05-16] MEDS: valACYclovir HCL 500 MG TABLET (FP) PO SCH (06:32)
[2016-05-16] MEDS ORDERED: PT OWN MED DRAWER 7, Y5N ONE ×2 (08:49→09:53)
--- NOTE | 2016-05-16 10:59 | PN ---
Progress Note, Physician - Current Medication List Current Medications: Active Medications Acetaminophen (Tylenol -) 650 mg PO QID PRN PRN Reason: PAIN OR FEVER Amlodipine Besylate (Norvasc -) 10 mg PO DAILY [facility] Last Admin: 05/15/16 11:57 Dose: 10 mg Atorvastatin Calcium (Lipitor -) 20 mg PO HS [facility] Last Admin: 05/15/16 21:56 Dose: 20 mg Gabapentin (Neurontin -) 300 mg PO HS [facility] Last Admin: 05/15/16 21:56 Dose: 300 mg Metoprolol Succinate (Toprol Xl -) 100 mg PO DAILY [facility] Last Admin: 05/15/16 11:56 Dose: 100 mg Pantoprazole Sodium (Protonix -) 40 mg PO DAILY [facility] Last Admin: 05/15/16 11:57 Dose: 40 mg Rivaroxaban (Xarelto -) 20 mg PO DAILY [facility] Last Admin: 05/15/16 11:57 Dose: 20 mg Rivastigmine (Exelon Patch 9.5 Mg/24 Hours -) 1 each TD DAILY [facility] Last Admin: 05/15/16 11:57 Dose: 1 each Tamsulosin HCl (Flomax -) 0.4 mg PO BID [facility] Last Admin: 05/15/16 21:56 Dose: 0.4 mg Valacyclovir HCl (Valtrex -) 1,000 mg PO TID [facility] Last Admin: 05/16/16 06:32 Dose: 1,000 mg Valsartan (Diovan -) 320 mg PO DAILY [facility] Last Admin: 05/15/16 11:57 Dose: 320 mg - Objective Vital Signs: Vital Signs Temperature 98.3 F 05/16/16 06:15 Pulse Rate 76 05/16/16 06:15 Respiratory Rate 18 05/16/16 06:15 Blood Pressure 122/56 05/16/16 06:15 O2 Sat by Pulse Oximetry (%) 97 05/15/16 21:00 Cardiovascular: Yes: S1, S2 Respiratory: Yes: CTA Bilaterally Gastrointestinal: Yes: Normal Bowel Sounds, Soft Edema: No Labs: CBC, BMP 05/15/16 05:30 05/15/16 05:30 INR, PTT INR 1.91 (0.82-1.09) H 05/12/16 18:00 Problem List - Problems (1) Weakness Code(s): R53.1 - WEAKNESS (2) Fall Code(s): W19.XXXA - UNSPECIFIED FALL, INITIAL ENCOUNTER (3) Dementia Code(s): F03.90 - UNSPECIFIED DEMENTIA WITHOUT BEHAVIORAL DISTURBANCE (4) Shingles Code(s): B02.9 - ZOSTER WITHOUT COMPLICATIONS (5) HTN (hypertension) Code(s): I10 - ESSENTIAL (PRIMARY) HYPERTENSION (6) CAD (coronary artery disease) Code(s): I25.10 - ATHSCL HEART DISEASE OF [place] CORONARY ARTERY W/O ANG PCTRS (7) Peptic ulcer Code(s): K27.9 - PEPTIC ULC, SITE UNSP, UNSP AC OR CHR, W/O HEMOR OR PERF (8) Afib Code(s): I48.91 - UNSPECIFIED ATRIAL FIBRILLATION (9) Total bilirubin, elevated Code(s): R17 - UNSPECIFIED JAUNDICE Assessment/Plan (1) Weakness Code(s): R53.1 - WEAKNESS CASE D/W FAMILY -> WANTS PT/SNF (PREFER [facility]) POOR GAIT LIVES ALONE BUT HAS FAMILY SUPPORT UNSAFE DISCHARGE (2) Fall Code(s): W19.XXXA - UNSPECIFIED FALL, INITIAL ENCOUNTER CTB NEG x 2 NEURO CONSULT APPRECIATED (3) Dementia Code(s): F03.90 - UNSPECIFIED DEMENTIA WITHOUT BEHAVIORAL DISTURBANCE I SPOKE TO DAUGHTER ( IN AGREEMENT) -> WANT DNR/DNI NEURO CONSULT NOTED (4) Shingles Code(s): B02.9 - ZOSTER WITHOUT COMPLICATIONS MULTIPLE DERMATOMES UNRELIABLE HISTORIAN ID DR TOLBERT KNOWS PATIENT FROM DR MIJARES'S OFFICE -> CONSULTED ON GABAPENTIN/VALTREX ISOLATION LESIONS RESOLVING BED BUGS? -> ELIMITE (5) HTN (hypertension) Code(s): I10 - ESSENTIAL (PRIMARY) HYPERTENSION IMPROVED CXr SHOW CARDIOMEGALY CARDIO CONSULT NOTED (6) CAD (coronary artery disease) Code(s): I25.10 - ATHSCL HEART DISEASE OF [place] CORONARY ARTERY W/O ANG PCTRS (7) Peptic ulcer Code(s): K27.9 - PEPTIC ULC, SITE UNSP, UNSP AC OR CHR, W/O HEMOR OR PERF PPI (8) Afib Code(s): I48.91 - UNSPECIFIED ATRIAL FIBRILLATION FALL RISK/UNRELIABLE ON XARELTO 20 LONG SUPERVISED/HOME WITH VNS/SNF -> WILL STOP & REPLACE WITH [facility]SA IF UNSUPERVISED/REPEAT FALL CARDIO CONSULT NOTED (9) Total bilirubin, elevated Code(s): R17 - UNSPECIFIED JAUNDICE APPRECIATE GI NOTE CAN F/U OUTPT R/O GILBERTS DISCHARGE TO SNF [facility] PT & SW ON CASE [employer] FM
[2016-05-16 11:19] VITALS: BP 146/83; PULSE 80; TEMP 98.9
[2016-05-16] MEDS: VALSARTAN 160 MG TABLET (UD) PO SCH (11:20)
[2016-05-16] MEDS: amLODIPine BESYLATE 10 MG TABLET (FP) PO SCH (11:20)
[2016-05-16] MEDS: PANTOPRAZOLE 40 MG TABLET (FP) PO SCH (11:20)
[2016-05-16] MEDS: TAMSULOSIN HCL 0.4 MG CAP.ER.24H (FP) PO SCH (11:21)
[2016-05-16] MEDS: METOPROLOL SUCCINATE 100 MG TAB.SR.24H (FP) PO SCH (11:21)
[2016-05-16] MEDS: RIVASTIGMINE 9.5 MG/24 HOURS TRANSDERMAL PATCH TD SCH (11:21)
[2016-05-16] MEDS: RIVAROXABAN 20 MG TABLET PO SCH (11:29)
== END 2016-05-16 14:02 | DRG 949 ==
LOC: JER 16:23 → JERBED 19:29 → J4W 23:55
PROVIDERS: ADMIT Family Medicine; ATTEND Family Medicine
DX: S00.03XD Contusion of scalp, subsequent encounter (principal); B02.7 Disseminated zoster; R17 Unspecified jaundice; G30.9 Alzheimer's disease, unspecified; M54.2 Cervicalgia; W19.XXXD Unspecified fall, subsequent encounter; F02.80 Dementia in other diseases classified elsewhere, unspecified severity, without behavioral disturbance, psychotic disturbance, mood disturbance, and anxiety; E78.5 Hyperlipidemia, unspecified; I10 Essential (primary) hypertension; I48.91 Unspecified atrial fibrillation; Z79.01 Long term (current) use of anticoagulants; I25.10 Atherosclerotic heart disease of native coronary artery without angina pectoris; Z95.1 Presence of aortocoronary bypass graft; Z86.73 Personal history of transient ischemic attack (TIA), and cerebral infarction without residual deficits; Z87.11 Personal history of peptic ulcer disease; R26.89 Other abnormalities of gait and mobility; T14.8 Other injury of unspecified body region; R53.1 Weakness
CPT/HCPCS: 36415; 70450-TC; 71010-TC; 80053; 82550; 82607; 83880; 84443; 84484; 85025; 85610; 86593; 86850; 86900; 86901; 87040; 93005; 93010; 97116-GP; 97163-GP; 99283-25